=== PATIENT | female | born 1975 | race Hispanic/Latino ===

== ENCOUNTER 2023-10-29 17:52 | Emergency (ER) | payer BC ==
[~2023-10-29] VITALS: Ht 160 cm; Wt 76.2 kg
[2023-10-29 18:58] LABS: RAPID GROUP A STREP negative (NEGATIVE)
[2023-10-29 19:01] LABS: SARS-CoV-2, RNA, NAAT POSITIVE SARS CoV-2 (NEGATIVE)
[2023-10-29 19:09] LABS: INFLUENZA TYPE A Negative For Type A (NEGATIVE); INFLUENZA TYPE B Negative For Type B (NEGATIVE)
[2023-10-29] MEDS ORDERED: ACETAMINOPHEN 500 MG TABLET PO ONE (19:30)
[2023-10-29] MEDS ORDERED: ALBUTEROL 0.083% 2.5 MG/3 ML INH IH ONE (20:30)
[2023-10-29] MEDS ORDERED: KETOROLAC 60 MG VIAL (30MG/ML) IM ONE (20:30)
[2023-10-29 20:49] VITALS: BP 138/68; PULSE 88; RESP 18; O2SAT 98
== END 2023-10-29 20:51 | disposition home or self-care (01) ==
LOC: EDH 17:52
DX: R00.0 Tachycardia, unspecified (principal); E11.9 Type 2 diabetes mellitus without complications; Z20.822 Contact with and (suspected) exposure to COVID-19
CPT/HCPCS: 71045; 87635; 87804; 87880; 93005

== ENCOUNTER 2024-06-19 15:19 | Emergency (ER) | payer BC ==
[~2024-06-19] VITALS: Ht 160 cm; Wt 73.9 kg
[2024-06-19 16:28] LABS: BASOPHILS # (AUTO) 0.05 K/uL (0.00-0.20); BASOPHILS % (AUTO) 0.5 % (0.0-5.0); EOSINOPHILS # (AUTO) 0.08 K/uL (0.00-0.70); EOSINOPHILS % (AUTO) 0.8 % (0.0-8.0); HEMATOCRIT 38.1 % (36-48); IMMATURE GRANULOCYTE ABSOLUTE 0.04 K/uL (0-1); LYMPHOCYTES # (AUTO) 2.6 K/uL (1.0-4.8); MEAN CORPUSCULAR HEMOGLOBIN 29.2 pg (27.0-33.0); MEAN CORPUSCULAR HGB CONC 34.6 g/dL (32.0-36.0); MEAN CORPUSCULAR VOLUME 84.3 fL (79-99); MONOCYTES # (AUTO) 0.5 K/uL (0.1-1.0); MONOCYTES % (AUTO) 4.7 % (3.0-13.0); NEUTROPHILS # (AUTO) 7.2 K/uL (1.8-7.7); NEUTROPHILS % (AUTO) 68.6 % (40.0-77.0); PLATELET COUNT (AUTO) 315 K/uL (130-400); RED BLOOD CELL COUNT(AUTO) 4.52 MIL/uL (4.00-5.50); RED CELL DISTRIBUTION WIDTH 11.8 % (11.0-15.5); WHITE BLOOD COUNT (AUTO) 10.5 K/uL (4.8-10.8)
[2024-06-19 16:38] LABS: CREATININE 0.9 mg/dL (0.5-1.0); POTASSIUM 3.6 mmol/L (3.5-5.1)
[2024-06-19 16:43] LABS: ALBUMIN 3.7 g/dL (3.5-5.0); BILIRUBIN,TOTAL 0.3 mg/dL (0.2-1.0); TOTAL PROTEIN, SERUM 7.6 g/dL (6.0-8.3)
[2024-06-19] MEDS: LIDOCAINE HCL 2% VISCOUS 15 ML UDCUP PO ONE (16:56)
[2024-06-19] MEDS: MAG/ALUM/SIMETH 30 ML UDCUP PO ONE (16:56)
[2024-06-19] MEDS: ONDANSETRON 4MG INJ IVP ONE (16:56)
[2024-06-19] MEDS: 0.9%NACL 1000ML 1,000 ML IV ONE (16:56)
[2024-06-19] MEDS: FAMOTIDINE 20MG VIAL IV ONE (16:56)
[2024-06-19 17:26] LABS: ADD UA MICROSCOPIC YES; APPEARANCE,URINE CLEAR (CLEAR); BILIRUBIN,URINE NEGATIVE (NEGATIVE); COLOR,URINE YELLOW (YELLOW); GLUCOSE, URINE (UA) NEGATIVE (NEGATIVE); KETONES,URINE NEGATIVE (NEGATIVE); LEUKOCYTE ESTERASE ,URINE NEGATIVE Leu/uL (NEGATIVE); NITRATE,URINE NEGATIVE (NEGATIVE); OCCULT BLOOD,URINE NEGATIVE (NEGATIVE); PH,URINE 7.5 (5.0-8.0); PROTEIN,URINE 70 mg/dL (NEGATIVE); UROBILINOGEN,URINE 0.2 mg/dL (0.2-1.0)
[2024-06-19 17:29] LABS: BACTERIA,URINE RARE /HPF (None Seen); MUCUS,URINE RARE LPF (None Seen); RBC,URINE 0-1 /HPF (0-1); SQUAMOUS EPITHELIAL CELL,UR FEW /HPF (0-2); YEAST,URINE BUDDING FEW /HPF (None Seen)
[2024-06-19] MEDS ORDERED: FAMO-136 PO (17:50)
[2024-06-19] MEDS ORDERED: ONDA-243 PO (17:50)
[2024-06-19 17:53] VITALS: BP 152/86; PULSE 75; RESP 16; O2SAT 98
== END 2024-06-19 18:00 | disposition home or self-care (01) ==
LOC: EDH 15:19
DX: R10.13 Epigastric pain (principal); R11.2 Nausea with vomiting, unspecified; E11.9 Type 2 diabetes mellitus without complications; I10 Essential (primary) hypertension
CPT/HCPCS: 99284; 96374; 96361; 96375; 80053; 84703; 83690; 85025; 81001; 36415; J3490; J7030; J2405

== ENCOUNTER 2024-10-22 16:13 | Inpatient (IN) | payer BC ==
[~2024-10-22] VITALS: Ht 162.6 cm; Wt 74.3 kg
[~2024-10-22 16:13] MED LIST: FAMO-136 PO; ONDA-243 PO
--- NOTE | 2024-10-22 16:27 | ERN ---
ED Note History of Present Illness Stated Complaint: FEVER Chief Complaint: Fever Time Seen by MD: 16:24 Dictation: PATIENT IS A 48-YEAR-OLD DIABETIC FEMALE COMING IN TODAY WITH FEVER CHILLS NAUSEA VOMITING ONSET TODAY. SHE STATES HER LAST BLOOD SUGAR WAS 260 THIS MORNING. STATES HE HAS NOT BEEN ABLE TO KEEP ANY FOOD DOWN. DENIES DIARRHEA OR COUGH. NO CHEST PAIN NO BACK PAIN NO SOB. Allergies: Coded Allergies: No Known Drug Allergies (Unverified Allergy, Unknown, 10/29/23) Home Meds Active Scripts Famotidine (Pepcid) 20 Mg Tablet, 20 MG PO BID for 7 Days, #14 TAB Prov:CAREY AGUAYO 06/19/24 Ondansetron (Ondansetron Odt) 4 Mg Tab.rapdis, 4 MG PO BID for 7 Days, #14 TAB Prov:CAREY AGUAYO 06/19/24 Past Medical History Past Medical History: Arthritis, Diabetes-Type II, Hypertension Surgical History: Other Surgical History Other: LEFT EYE SX 8 DAYS AGO History: Not Applicable RN Note Reviewed/Agreed w/PFSH: Yes Review of System Dictation CONSTITUTIONAL: NEGATIVE EXCEPT FOR HPI FEVER CHILLS HEAD/FACE: NEGATIVE EXCEPT FOR HPI EENT: NEGATIVE EXCEPT FOR HPI RESPIRATORY: NEGATIVE EXCEPT FOR HPI GASTROINTESTINAL/ABDOMINAL: NEGATIVE EXCEPT FOR HPI NAUSEA VOMITING GENITOURINARY: NEGATIVE EXCEPT FOR HPI MUSCULOSKELETAL: NEGATIVE EXCEPT FOR HPI INTEGUMENTARY: NEGATIVE EXCEPT FOR HPI NEUROLOGICAL/PSYCH: NEGATIVE EXCEPT FOR HPI HEMATOLOGIC/LYMPHATIC: NEGATIVE EXCEPT FOR HPI ALL SYSTEMS NEGATIVE, EXCEPT NOTED ABOVE. 13 POINT REVIEW OF SYSTEMS ASSESSED AND ALL NEGATIVE EXCEPT FOR ABOVE. Initial Vital Sign VS Vital Signs Date Time Temp Pulse Resp B/P (MAP) Pulse Ox O2 Delivery O2 Flow Rate FiO2 10/22/24 16:16 102.2 137 18 129/79 96 Room Air 0 10/22/24 16:21 21 Physical Exam Dictation VITAL SIGNS REVIEWED GENERAL APPEARANCE: ALERT, ORIENTED X 3, MILD ACUTE DISTRESS, WELL DEVELOPED, NOURISHED. HEAD AND FACE: NON-TRAUMATIC. EYES: PERRL, PINK CONJUNCTIVAS, EYELID NO TRAUMA, ANTERIOR CHAMBER WITH ARCUS SENILIS. EARS: PINNAS INTACT AND NO SIGNS OF TRAUMA OR ERYTHEMA EAR CANALS CLEAR AND NO DISCHARGE TM NO ERYTHEMA NOSE: CLEAR DISCHARGE, NO BLEEDING. OROPHARYNX: MOUTH NORMAL, TONGUE PINK, PHARYNX CLEAR,NO ERYTHEMA, TONSILS NO EXUDATES, NO ABSCESSES NOTED, MUCOUS MEMB DIMITRY MOIST NECK: SUPPLE, NON-TENDER, NO THYROMEGALY, NO MASSES, NO JVD, NO BRUITS BREAST:DEFERRED CHEST:NO TENDERNESS, NO CREPITUS, NO PARADOXICAL MOVEMENT, NO RETRACTIONS LUNGS:CLEAR, WELL-VENTILATED, SYMMETRIC, NO RALES, NO WHEEZING, NO RHONCHI, NO S TRIDOR, GOOD BREATH SOUNDS BILATERALLY HEART: REGULAR RATE, REGULAR RHYTHM, NO MURMUR, NO GALLOPS VASCULAR: NO PERIPHERAL EDEMA, ABDOMEN: SOFT, POSITIVE BOWEL SOUNDS, NONDISTENDED, NO GUARDING, NONTENDER, NO REBOUND, NO MASSES NO HEPATOMEGALY, NO SPLENOMEGALY, NO MEDINA'S SIGN, NO HERNIAS. NO FOCAL TENDERNESS RECTAL: DEFERRED GENITAL: DEFERRED NEUROLOGICAL: NORMAL SPEECH, MOTOR FUNCTION INTACT, SENSORY FUNCTION INTACT MUSCULOSKELETAL: NECK NONTENDER, FULL RANGE OF MOTION, BACK NONTENDER, FULL RANGE OF MOTION, EXTREMITIES: NONTENDER, FULL RANGE OF MOTION SKIN: COLOR PINK, DRY, NO TURGOR, NO RASH, NO LACERATIONS, NO ABRASIONS, NO CONTUSIONS. LYMPHATIC: DEFERRED Results (Laboratory/Radiology) Laboratory/Radiology Laboratory Tests Test 10/22/24 16:38 10/22/24 18:00 White Blood Count 18.4 K/uL (4.8-10.8) H Red Blood Count 4.52 MIL/uL (4.00-5.50) Hemoglobin 13.1 g/dL (12.0-16.0) Hematocrit 38.2 % (36-48) Mean Corpuscular Volume 84.5 fL (79-99) Mean Corpuscular Hemoglobin 29.0 pg (27.0-33.0) Mean Corpuscular Hemoglobin Concent 34.3 g/dL (32.0-36.0) Red Cell Distribution Width 12.6 % (11.0-15.5) Platelet Count 196 K/uL (130-400) Mean Platelet Volume 10.1 fL (7.5-10.5) Immature Granulocyte % (Auto) 0.5 % (0-1) Neutrophils (%) (Auto) 89.4 % (40.0-77.0) H Lymphocytes (%) (Auto) 5.0 % (21.0-51.0) L Monocytes (%) (Auto) 4.6 % (3.0-13.0) Eosinophils (%) (Auto) 0.1 % (0.0-8.0) Basophils (%) (Auto) 0.4 % (0.0-5.0) Neutrophils # (Auto) 16.4 K/uL (1.8-7.7) H Lymphocytes # (Auto) 0.9 K/uL (1.0-4.8) L Monocytes # (Auto) 0.8 K/uL (0.1-1.0) Eosinophils # (Auto) 0.01 K/uL (0.00-0.70) Basophils # (Auto) 0.08 K/uL (0.00-0.20) Absolute Immature Granulocyte (auto 0.09 K/uL (0-1) Nucleated Red Blood Cells 0.0 % (0.0-0.19) White Cell Morphology Comment See comments Sodium Level 140 mmol/L (136-145) Potassium Level 4.0 mmol/L (3.5-5.1) Chloride Level 104 mmol/L (101-111) Carbon Dioxide Level 29 mmol/L (21-32) Blood Urea Nitrogen 14 mg/dL (7-18) Creatinine 0.9 mg/dL (0.5-1.0) Glomerular Filtration Rate Calc 79 mL/min (>90) Random Glucose 153 mg/dL (70-105) H Whole Blood Ketones Quantitative 0.2 mmol/L (0.0-0.6) Lactic Acid Level 2.2 mmol/L (0.8-2.5) Total Calcium 9.0 mg/dL (8.5-10.1) Urine Color LIGHT-YELLOW (YELLOW) Urine Appearance CLEAR (CLEAR) Urine pH 6.5 (5.0-8.0) Urine Specific [place] 1.022 (1.001-1.031) Urine Protein 50 mg/dL (NEGATIVE) H Urine Glucose (UA) 30 mg/dL (NEGATIVE) H Urine Ketones NEGATIVE mg/dL (NEGATIVE) Urine Occult Blood NEGATIVE (NEGATIVE) Urine Nitrate NEGATIVE (NEGATIVE) Urine Bilirubin NEGATIVE mg/dL (NEGATIVE) Urine Urobilinogen 0.2 mg/dL (0.2-1.0) Urine Leukocyte Esterase NEGATIVE Sale[place]/uL Urine RBC None /HPF (0-1) Urine WBC 0-1 /HPF (0-1) Urine Squamous Epithelial Cells RARE /HPF (0-2) Urine Bacteria None /HPF (None Seen) Influenza Type A Antigen Negative For Type A Influenza Type B Antigen Negative For Type B SARS-CoV-2 Antigen (Rapid) PRESUMPTIVE NEGATIVE HEST 1VW HISTORY: Cough COMPARISON: None FINDINGS: A frontal projection of the chest was obtained. No acute pulmonary infiltrates is seen. The heart is normal in size. Prominent interstitial markings are seen. No evidence of aortic calcification is seen. IMPRESSION: 1. No acute pulmonary infiltrate is seen. Labs Reviewed?: Yes ED Course ED Course Orders Procedure Category Date Status Time Covid19 (Sars Antigen LAB 10/22/24 Complete Rapid) 16:24 Influenza Type A & B, LAB 10/22/24 Complete Rapid 16:24 Ketone Blood LAB 10/22/24 Complete Quantitative 16:24 Acetaminophen 500mg PHA 10/22/24 Complete Tab (Tylenol 500mg T 16:30 Cbc With Differential LAB 10/22/24 Complete 16:24 Blood Cult SAMMI 10/22/24 In Process 16:24 Urinalysis Profile LAB 10/22/24 Complete 16:24 0.9%Nacl 1000ml (Ns PHA 10/22/24 In Process 1000ml) 16:30 Lactic Acid LAB 10/22/24 Complete 16:24 Ceftriaxone 2gm Vial PHA 10/22/24 Complete (Rocephin 2gm Inj) 16:30 Basic Metabolic Panel LAB 10/22/24 Complete 16:24 Chest 1vw RAD 10/22/24 Logged 18:49 Current Medications Medications (Trade) Dose Ordered Sig/Lc Route PRN Reason Start Time Stop Time Status Last Admin Dose Admin Acetaminophen (TYLenol 500MG TAB) 1,000 mg ONCE ONCE PO 10/22/24 16:30 10/22/24 16:31 DC 10/22/24 17:58 Ceftriaxone Sodium (Rocephin 2gm Inj) 2 gm ONCE ONCE IVPB 10/22/24 16:30 10/22/24 16:31 DC 10/22/24 17:57 Sodium Chloride 2,178 ml @ 726 mls/hr ONCE ONCE IV 10/22/24 16:30 10/22/24 19:29 10/22/24 17:57 Vital Signs Date Time Temp Pulse Resp B/P (MAP) Pulse Ox O2 Delivery O2 Flow Rate FiO2 10/22/24 18:16 100.8 110 20 132/71 96 Room Air* 0 21 10/22/24 16:21 102.2 137 18 129/79 96 Room Air* 0 21 10/22/24 16:16 102.2 137 18 129/79 96 Room Air 0 1855 Patient will be admitted to the hospital for fever of unknown origin leukocytosis and elevated lactic acid. Unable to locate source of infection, patient will need possible infectious disease follow up. She agrees to be admitted. She remains hemodynamically stable however is tachycardic with heart rate 118-125. Spoke with Eric YOON hospitalist reviewed labs to include septic workup a pending chest x-ray. He agreed to admit patient. Medical Decision Making MDM MDM: Differential diagnosis: Sepsis/DKA/electrolyte imbalance/dehydration/p neumonia/bronchitis/urinary tract infection Rationale: Tests considered and ordered secondary to shared decision making include: labs, and radiology Previous outside records reviewed: Old ER visits. Reviewed Risk of complication and/or morbidity or mortality of patient management: Mild Medications-Per medication reconciliation Need for hospitalization: Patient does meet criteria for hospitalization. Patient will need infectious disease consultation and follow up on sepsis Need for emergency major/minor surgery: No There are no social concerns with this patient. Prescription drug management Prescriptions will include symptomatic care Patient's prior external medical records from other ER visits were reviewed by me as indicated. Prior testing and results from previous visits were reviewed. Prior tests were taken into account with medical decision making and resource utilization, independent historian/historians were used to obtain complete medical history. I independently interpreted the test that were performed, results were reviewed by me and considered findings on radiology if ordered. Medical management and examination interpretation discussions were had by me with other qualified healthcare professionals as indicated for the patient's care. DX & DISP Disposition: Inpatient Decision to Admit Time: 18:57 Departure Impression: Primary Impression: Intractable nausea and vomiting Additional Impressions: Uncontrolled diabetes mellitus, Fever, unknown o rigin, Elevated lactic acid level Condition: Stable Referrals: ASTON TANNER MD (PCP) Time of Disposition: 18:57 I have reviewed the case, and I agree with, Diagnosis and Plan HARI HOLLAND NP Oct 22, 2024 16:27
[2024-10-22 16:47] LABS: BASOPHILS # (AUTO) 0.08 K/uL (0.00-0.20); BASOPHILS % (AUTO) 0.4 % (0.0-5.0); EOSINOPHILS # (AUTO) 0.01 K/uL (0.00-0.70); EOSINOPHILS % (AUTO) 0.1 % (0.0-8.0); HEMATOCRIT 38.2 % (36-48); IMMATURE GRANULOCYTE ABSOLUTE 0.09 K/uL (0-1); LYMPHOCYTES # (AUTO) 0.9 K/uL (1.0-4.8); MEAN CORPUSCULAR HGB CONC 34.3 g/dL (32.0-36.0); MEAN CORPUSCULAR VOLUME 84.5 fL (79-99); MONOCYTES # (AUTO) 0.8 K/uL (0.1-1.0); MONOCYTES % (AUTO) 4.6 % (3.0-13.0); NEUTROPHILS # (AUTO) 16.4 K/uL (1.8-7.7); NEUTROPHILS % (AUTO) 89.4 % (40.0-77.0); PLATELET COUNT (AUTO) 196 K/uL (130-400); RED BLOOD CELL COUNT(AUTO) 4.52 MIL/uL (4.00-5.50); RED CELL DISTRIBUTION WIDTH 12.6 % (11.0-15.5); WHITE BLOOD COUNT (AUTO) 18.4 K/uL (4.8-10.8)
[2024-10-22 17:06] LABS: CREATININE 0.9 mg/dL (0.5-1.0)
[2024-10-22] MEDS: 0.9%NACL 1000ML 2,178 ML IV ONE (17:57)
[2024-10-22] MEDS: CEFTRIAXONE 2GM VIAL IVPB ONE (17:57)
[2024-10-22] MEDS: acetaMINOPHEN 500 MG TABLET PO ONE (17:58)
[2024-10-22 18:17] LABS: APPEARANCE,URINE CLEAR (CLEAR); BILIRUBIN,URINE NEGATIVE (NEGATIVE); COLOR,URINE LIGHT-YELLOW (YELLOW); GLUCOSE, URINE (UA) 30 mg/dL (NEGATIVE); KETONES,URINE NEGATIVE (NEGATIVE); LEUKOCYTE ESTERASE ,URINE NEGATIVE Leu/uL (NEGATIVE); NITRATE,URINE NEGATIVE (NEGATIVE); OCCULT BLOOD,URINE NEGATIVE (NEGATIVE); PH,URINE 6.5 (5.0-8.0); PROTEIN,URINE 50 mg/dL (NEGATIVE); UROBILINOGEN,URINE 0.2 mg/dL (0.2-1.0)
[2024-10-22 18:20] LABS: ADD UA MICROSCOPIC YES
[2024-10-22 18:25] LABS: COVID19 (SARS ANTIGEN RAPID) PRESUMPTIVE NEGATIVE (NEGATIVE)
[2024-10-22 18:26] LABS: MUCUS,URINE RARE LPF (None Seen); SQUAMOUS EPITHELIAL CELL,UR RARE /HPF (0-2); WBC,URINE 0-1 /HPF (0-1)
[2024-10-22 18:27] LABS: INFLUENZA TYPE A Negative For Type A (NEGATIVE); INFLUENZA TYPE B Negative For Type B (NEGATIVE)
--- NOTE | 2024-10-22 19:17 | HP ---
History of Present Illness Reason for Visit: fever History of Present Illness is a 48-year-old female that was seen and examined today on 10/22/2024. Today in the emergency department WBCs 18.4, left shift neutrophils 89.4%, BNP unremarkable, glucose 153 mg/dL, urinalysis unremarkable, influenza screen was negative, COVID screen was negative. No diagnostic radiographic imaging has been performed at time of admission. Chest x-ray has now been ordered. Additionally patient arrived with a temperature of 102.2, heart rate 137, combined with WBCs 18.4 met clinical sirs criteria. Emergency room physician recommended that patient be admitted with a diagnosis of SIRS. Past Medical History ADDITIONAL PAST MEDICAL HISTORY: [Diabetes mellitius type2, hypertension, hyperlipidemia] SOCIAL HISTORY: [Negative for smoking, alcohol use, drug use. Patient lives with the [employer] [facility]. Patient is typically independent of all her ADLs. Patient is employed as a provider. Patient has good access to health care through her insurance. Patient denies difficulty paying her bills.] SURGICAL HISTORY: [Left eye injection, section x2] Review of Systems General: Fever, Chills; No Night Sweats, No Fatigue, No Malaise, No Appetite, No Other HEENT: No Head Aches, No Visual Changes, No Eye Pain, No Ear Pain, No Dysphasia, No Sinus Congestion, No Post Nasal Drip, No Sore Throat, No Other Pulmonary: No Dyspnea, No Cough, No Pleuritic Chest Pain, No Other Cardiovascular: No: Chest Pain, Palpitations, Orthopnea, Paroxysmal Noc. Dyspnea, Edema, Lt Headedness, Other Gastrointestinal: Nausea, Vomiting; No: Abdominal Pain, Diarrhea, Constipation, Melena, Hematochezia, Other Genitourinary: No Dysuria, No Frequency, No Incontinence, No Hematuria, No Retention, No Other Musculoskeletal: No: other, neck pain, shoulder pain, arm pain, back pain, hand pain, leg pain, foot pain Skin: No Urticaria, No Rash, No Other Neurological: No: Weakness, Numbness, Incoordination, Change in speech, Confusi on, Seizures, Other Allergies: Coded Allergies: No Known Drug Allergies (Unverified Allergy, Unknown, 10/29/23) Scheduled Famotidine (Pepcid), 20 MG PO BID Metformin HCl (Metformin HCl), 2 TAB PO BID, (Reported) Ondansetron (Ondansetron Odt), 4 MG PO BID Semaglutide (Ozempic), 2 MG SQ QWEEK, (Reported) Exam Vital Signs Vital Signs Date Time Temp Pulse Resp B/P (MAP) Pulse Ox O2 Delivery O2 Flow Rate FiO2 10/22/24 19:02 99.7 110 20 131/77 97 Room Air* 0 21 General Appearance: Alert, Oriented X3, Cooperative, mild distress HEENT: Atraumatic, PERRLA, EOMI, Mucous membr. moist/pink Respiratory: Clear to auscultation, Normal air movement, NL respiratory effort Cardiovascular: Normal S1, Normal S2, Other (Tachycardia) Abdominal: Normal bowel sounds, Soft, No tenderness, No hepatospenomegaly Extremities: No clubbing, No cyanosis, No edema Skin: No significant lesion Neuro: Normal gait, Normal speech, Strength at 5/5 X4 ext, Sensation intact, Cranial nerves 3-12 NL Psych/Mental Status: Mental status NL, Mood NL, Thoughts/Content NL Assessment/Plan ASSESSMENT: [ Sirs, POA Diabetes mellitius type2 Hypertension Hyperlipidemia Nausea, vomiting, POA] PLAN: [ Admit patient to medical floor as inpatient status. Fluid resuscitation with 0.9% NS 30 mL/kg times 1 dose Empiric antibiotic therapy with Zosyn Check procalcitonin, follow up with the results Check lactic acid, follow up with the results Check blood culture, follow up with the results Check chest x-ray, follow up with the results Check GI stool PCR, follow up with the results Check group a strep rapid antigen, follow up with the results GI rest Keep patient NPO Consider advancing diet to clear liquids on 10/23/2024 for lunch if patient is no longer nauseated. Check hemoglobin A1c in a.m. Glucometer checks a.c. and HS 1800 ADA diet Humulin R sliding scale 1. Consider resuming home medications once they are reconciled For now, Hydralazine 10 mg IV every 4 hours for systolic blood pressure greater than 160 mmHg GI prophylaxis, famotidine 20 mg IV once daily. DVT prophylaxis, Lovenox 40 mg subcutaneously once daily. ADVANCED CARE PLANNING 1. Which of the following were discussed? Hospice Care - Yes Therapeutic options - Yes Advance Directives - Yes- patient does not have any advance directives in p lace at this time, however her [employer] can make decisions for her if she becomes unable. Other discussions - patient wishes to remain a full code at this time 2. Discussed with who? Patient 3. Voluntary nature of this service was explained to the patient? Yes 4. Amount of time spent - __ 16 minutes 5. Reviewed by Physician? (if this service was performed by NPP) Yes This document was generated in part using voice recognition software, occasional wrong word or sound alike substitutions may have occurred due to the inherent limitations of voice recognition software. Read the chart carefully and recogn ize using context, where the substitutions have occurred. Although every effort was made to edit the content, [employer] infrastructure consultant and typing errors may occur ATTESTATION BY PHYSICIAN I have seen and examined the patient. I reviewed the documentation, medical d ecision making, and treatment plan as noted by the mid-level provider above. I agree with the findings and plan of care. DARIANA [facility] Oct 22, 2024 19:17
[2024-10-22] MEDS ORDERED: morPHINE 4 MG SYG IVP PRN (19:30)
[2024-10-22] MEDS ORDERED: hydrALAZine 20MG/ML VIAL IV PRN (19:30)
[2024-10-22] MEDS: ZOSYN 3.375GM +NS 50ML IV SCH (19:34)
[2024-10-22] MEDS: LACTATED RINGERS 1000ML 1,000 ML IV SCH (19:35)
[2024-10-22] MEDS ORDERED: METF-444 PO (19:40)
[2024-10-22] MEDS ORDERED: SEMA2PEN SQ (19:41)
--- NOTE | 2024-10-22 19:41 | NUR ---
PATIENT DID NOT BRING HOME MEDICATIONS
--- NOTE | 2024-10-22 20:00 | HMCIMG ---
Exam Type: CHEST 1VW Clinical Information: SOB/cough Comparison: None Findings: The lungs are clear of infiltrates. The heart is enlarged. Bony and soft tissue structures of the chest wall are unremarkable. IMPRESSION: Cardiomegaly. Clear lungs.
[2024-10-22] MEDS: INSULIN humuLIN R 100 UNIT/ML 3ML SQ SCH (21:04)
[2024-10-22 22:04] VITALS: BP 121/66; PULSE 98; RESP 18; TEMP 97.7
[2024-10-22 23:00] VITALS: O2SAT 96
[2024-10-23] VITALS (7 sets, daily range): BP systolic 107–138; BP diastolic 58–78; PULSE 85–105; RESP 19–21; TEMP 97.7–100.2; O2SAT 98–99
[2024-10-23] MEDS: acetaMINOPHEN 650 MG SUPPOSITORY RC PRN (01:32)
[2024-10-23 05:56] LABS: BASOPHILS # (AUTO) 0.07 K/uL (0.00-0.20); BASOPHILS % (AUTO) 0.4 % (0.0-5.0); HEMATOCRIT 32.5 % (36-48); LYMPHOCYTES % (AUTO) 10.3 % (21.0-51.0); MEAN CORPUSCULAR HEMOGLOBIN 28.5 pg (27.0-33.0); MEAN CORPUSCULAR HGB CONC 34.2 g/dL (32.0-36.0); MEAN CORPUSCULAR VOLUME 83.5 fL (79-99); MONOCYTES # (AUTO) 1.1 K/uL (0.1-1.0); MONOCYTES % (AUTO) 5.4 % (3.0-13.0); NEUTROPHILS # (AUTO) 16.2 K/uL (1.8-7.7); NEUTROPHILS % (AUTO) 83.4 % (40.0-77.0); PLATELET COUNT (AUTO) 177 K/uL (130-400); RED BLOOD CELL COUNT(AUTO) 3.89 MIL/uL (4.00-5.50); RED CELL DISTRIBUTION WIDTH 12.8 % (11.0-15.5); WHITE BLOOD COUNT (AUTO) 19.4 K/uL (4.8-10.8)
[2024-10-23] MEDS: ondanSETRON 4MG INJ IV PRN (05:59)
[2024-10-23 06:23] LABS: HEMOGLOBIN A1C 6.4 % (4.0-6.0)
[2024-10-23 06:26] LABS: CREATININE 0.8 mg/dL (0.5-1.0); MAGNESIUM 1.6 mg/dL (1.80-2.40); PHOSPHORUS 3.2 mg/dL (2.5-4.9); POTASSIUM 3.6 mmol/L (3.5-5.1)
[2024-10-23] MEDS ORDERED: PoTASSium chloRIDE 20MEQ/100ML 100 ML IV PRN (11:30)
[2024-10-23] MEDS ORDERED: PoTASSium chl 10% ELIXIR 20MEQ 20 MEQ/15 ML UDCUP PO PRN (11:30)
[2024-10-23] MEDS ORDERED: doCUSate SODIUM 100 MG CAP PO ONE (11:30)
[2024-10-23] MEDS: FAMOTIDINE 20MG VIAL IV SCH (11:47)
[2024-10-23] MEDS: ENOXAPARIN SODIUM 40 MG/0.4 ML SYRINGE SQ SCH (11:47)
--- NOTE | 2024-10-23 12:52 | PN ---
[facility] PROGRESS NOTE Date of Service: Oct 23, 2024 Time of Service: 11:30 SUBJECTIVE: The patient is a 48-year-old female with a past medical history of type 2 diabetes mellitus, hypertension, hyperlipidemia presented to ED on 10/22 with the chief complaints of 1 day of fever with chills, nausea, and vomiting. She stated her blood sugar is 260 the day before presentation and was not able to keep any food down. She reports having been around his grandson who was sick and had similar symptoms. On presentation, she was febrile with a temperature of 102.2, pulse rate 137, blood pressure of 129/79. Labs showed a WBC of 18.4, neutrophils percentage 89.4, lymphopenia 5, electrolytes and liver enzymes were within normal limits. Whole blood sugar was 212, hemoglobin A1c 6.4, lactic acid 2.2, magnesium 1.6. Urine analysis results were nonsignificant, the patient tested positive for group a Streptococcus. She met the SIRS criteria and was admitted for the management of SIRS. 10/23- the patient was examined at bedside. She is lying comfortably however says she is feeling tired, having chills and occipital headaches. Meningeal s igns were negative. She had a fever of 100.2 today a.m. and tachycardia has been improving now is in early 100s. Labs: WBC went up to 19.4 From 18.4, lactic acid 2.5, hemoglobin A1C 6.4, total calcium 8.4, magnesium 1.6. The patient meets the criteria for sepsis. We will continue Zosyn, monitor improvement in clinical symptoms, and repeat labs in a.m. REVIEW OF SYSTEMS CONSTITUTIONAL: c/o fevers, chills, headaches. Denies night sweats. No unintentional weight loss reported. NEUROLOGICAL: Denies amaurosis fugax, motor weakness, sensory deficit, verti go/spinning sensation, gait abnormalities, or tremors. ENT: No hearing loss, otalgia, otorrhea, rhinitis, rhinorrhea, hoarseness, or sore throat. CARDIOVASCULAR: Denies any exertional angina, dyspnea on exertion, orthopnea, paroxysmal nocturnal dyspnea, palpitations, life-threatening arrhythmias, claudication. PULMONARY: Denies any shortness of breath, cough, phlegm/sputum, hemoptysis, pleuritic chest pain. SLEEP: Denies morning headaches, daytime somnolence or napping. Denies difficulty falling asleep, staying asleep, waking from sleep. Denies knowledge of snoring. GASTROINTESTINAL: Denies any type of dysphagia to either liquids or solids. Denies nausea, vomiting, pyrosis, early satiety, abdominal pain, diarrhea, constipation, or changes in stool consistency or caliber. Denies coffee-ground emesis, hematemesis, hematochezia, or melanotic stools. GENITOURINARY: Denies frequency, urgency, nocturia, hematuria or incontinence (Storage/Irritative symptoms.) Low urinary stream, straining to void, urinary intermittency or hesitancy, splitting of the voiding stream, terminal dribbling. ENDOCRINOLOGIC: Denies polyuria, polydipsia, polyphagia or heat/cold intolerances. HEMATOLOGIC: Denies thrombophilia/previous clots, or coagulopathy/bleeding disorders. ONCOLOGIC: Denies personal history of malignancy. DERMATOLOGIC: Denies rashes or pruritus. PSYCHIATRIC: Denies any suicidal or homicidal ideation. Denies hallucinations. PHYSICAL EXAM GENERAL APPEARANCE: The patient is awake, alert, and oriented, in no acute cardiopulmonary distress. NEUROLOGICAL: Cranial nerves II-XII grossly intact. Motor is 5/5 in bilateral upper and lower extremities proximal to distal. No sensory deficits. HEENT: Face is symmetric. Pupils are equal and reactive. Extraocular movements are intact. NECK: Supple. No JVD. No thyromegaly. No submental, submandibular, pre- /postauricular, occipital or supraclavicular lymphadenopathy. CHEST: Normal chest expansion. No Telemetry. LUNGS: Absence of any rales, rhonchi or any wheezing. CARDIOVASCULAR: Regular. S1 and S2 normal. No appreciable rubs, murmurs or gallops. ABDOMEN: Soft, nontender, and nondistended. There is no rebound, voluntary guarding, or rigidity. : Deferred. No Woodard. EXTREMITIES: Non-edematous and not cyanotic. No clubbing. Good capillary refill. SKIN: No skin breakdown. Vital Signs (last 8hr) Date Time Temp Pulse Resp B/P (MAP) Pulse Ox O2 Delivery O2 Flow Rate FiO2 10/23/24 12:00 100.0 98 21 124/74 97 Room Air 10/23/24 08:00 100.2 92 19 138/78 99 Room Air LABS: Laboratory: Test 10/23/24 11:45 10/23/24 05:51 10/22/24 20:55 10/22/24 20:40 Range/Units Whole Blood Glucose 142 H 70-110 MG/DL White Blood Count 19.4 H 4.8-10.8 K/uL Red Blood Count 3.89 L 4.00-5.50 MIL/uL Hemoglobin 11.1 L 12.0-16.0 g/dL Hematocrit 32.5 L 36-48 % Mean Corpuscular Volume 83.5 79-99 fL Mean Corpuscular Hemoglobin 28.5 27.0-33.0 pg Mean Corpuscular Hemoglobin Concent 34.2 32.0-36.0 g/dL Red Cell Distribution Width 12.8 11.0-15.5 % Platelet Count 177 130-400 K/uL Mean Platelet Volume 10.0 7.5-10.5 fL Immature Granulocyte % (Auto) 0.5 0-1 % Neutrophils (%) (Auto) 83.4 H 40.0-77.0 % Lymphocytes (%) (Auto) 10.3 L 21.0-51.0 % Monocytes (%) (Auto) 5.4 3.0-13.0 % Eosinophils (%) (Auto) 0.0 0.0-8.0 % Basophils (%) (Auto) 0.4 0.0-5.0 % Neutrophils # (Auto) 16.2 H 1.8-7.7 K/uL Lymphocytes # (Auto) 2.0 1.0-4.8 K/uL Monocytes # (Auto) 1.1 H 0.1-1.0 K/uL Eosinophils # (Auto) 0.00 0.00-0.70 K/uL Basophils # (Auto) 0.07 0.00-0.20 K/uL Absolute Immature Granulocyte (auto 0.10 0-1 K/uL Nucleated Red Blood Cells 0.0 0.0-0.19 % Sodium Level 142 136-145 mmol/L Potassium Level 3.6 3.5-5.1 mmol/L Chloride Level 108 101-111 mmol/L Carbon Dioxide Level 27 21-32 mmol/L Blood Urea Nitrogen 10 7-18 mg/dL Creatinine 0.8 0.5-1.0 mg/dL Glomerular Filtration Rate Calc 91 >90 mL/min Random Glucose 128 H 70-105 mg/dL Hemoglobin A1c 6.4 H 4.0-6.0 % Estimated Average Glucose (eAG) 137 H 70-126 mg/dL Total Calcium 8.4 L 8.5-10.1 mg/dL Phosphorus Level 3.2 2.5-4.9 mg/dL Magnesium Level 1.60 L 1.80-2.40 mg/dL Group A Streptococcus Rapid positive *A NEGATIVE Lactic Acid Level 2.5 0.8-2.5 mmol/L Test 10/22/24 18:00 10/22/24 16:38 Range/Units Urine Color LIGHT-YELLOW YELLOW Urine Appearance CLEAR CLEAR Urine pH 6.5 5.0-8.0 Urine Specific [place] 1.022 1.001-1.031 Urine Protein 50 H NEGATIVE mg/dL Urine Glucose (UA) 30 H NEGATIVE mg/dL Urine Ketones NEGATIVE NEGATIVE mg/dL Urine Occult Blood NEGATIVE NEGATIVE Urine Nitrate NEGATIVE NEGATIVE Urine Bilirubin NEGATIVE NEGATIVE mg/dL Urine Urobilinogen 0.2 0.2-1.0 mg/dL Urine Leukocyte Esterase NEGATIVE NEGATIVE Saleem/uL Urine RBC None 0-1 /HPF Urine WBC 0-1 0-1 /HPF Urine Squamous Epithelial Cells RARE 0-2 /HPF Urine Bacteria None None Seen /HPF Influenza Type A Antigen Negative For Type A NEGATIVE Influenza Type B Antigen Negative For Type B NEGATIVE SARS-CoV-2 Antigen (Rapid) PRESUMPTIVE NEGATIVE NEGATIVE White Cell Morphology Comment See comments Whole Blood Ketones Quantitative 0.2 0.0-0.6 mmol/L Procalcitonin < 0.05 L 0.05-0.5 ng/mL Current Medications Medications (Trade) Dose Ordered Sig/Lc Route PRN Reason Start Time Stop Time Status Last Admin Dose Admin Acetaminophen (TYLenol 650MG SUPPOSITORY) 650 mg Q6H PRN RC MILD to MODERATE PAIN (1-6) 10/22/24 19:30 11/21/24 19:29 10/23/24 01:32 650 MG Bisacodyl (DulcoLAX 5MG TAB) 10 mg BID PRN PO PRN 10/23/24 11:30 11/22/24 11:29 Enoxaparin Sodium (Lovenox) 40 mg DAILY SQ 10/23/24 09:00 11/22/24 08:59 10/23/24 11:47 40 MG Famotidine (Pepcid 20mg Vial) 20 mg DAILY IV 10/23/24 09:00 11/22/24 08:59 10/23/24 11:47 20 MG Hydralazine HCl (APRESOLine 20MG INJ) 10 mg Q6H PRN IV For:SBP above 160;DBP above 90 10/22/24 19:30 11/21/24 19:29 Insulin Human Regular (humuLIN R 100 UNIT/ML 3ML) INSULIN SLIDING SCAL... ACHS SQ 10/22/24 21:00 11/21/24 20:59 10/22/24 21:04 12 UNIT Lactated Ringer's 1,000 ml @ 100 mls/hr Q10H IV 10/22/24 19:30 11/21/24 19:29 10/22/24 19:35 100 MLS/HR Magnesium Sulfate 50 ml @ 0 mls/hr PROTOCOL PRN IV PRN 10/23/24 11:30 11/22/24 11:29 Morphine Sulfate (morPHINE 4MG SYG) 4 mg Q4H PRN IVP SEVERE PAIN (7-10) 10/22/24 19:30 10/29/24 19:29 Ondansetron HCl (zoFRAN 4MG INJ) 4 mg Q6H PRN IV NAUSEA/VOMITING 10/22/24 19:30 11/21/24 19:29 10/23/24 05:59 4 MG Piperacillin Sod/ Tazobactam Sod (Zosyn 3.375gm+NS 50ml) 3.375 gm Q8H IV 10/22/24 19:30 11/01/24 19:29 10/23/24 11:47 3.375 GM Potassium Chloride 100 ml @ 100 mls/hr AD PRN IV POTASSIUM PROTOCOL 10/23/24 11:30 11/22/24 11:29 Potassium Chloride (K-Dur/Klor-Con 20meq) 20 meq AD PRN PO POTASSIUM PROTOCOL 10/23/24 11:30 11/22/24 11:29 Potassium Chloride (KCl 10% Elixir 20meq/15ml) 20 meq AD PRN PO POTASSIUM PROTOCOL 10/23/24 11:30 11/22/24 11:29 DIAGNOSTICS / RADIOLOGY: [place] [id number] [address] IMAGING REPORT Signed PATIENT: ABDI RODRIGUEZ MR#: [id number] : 1975 SEX: F AGE: 48 LOCATION: [facility] ORDER 49 STATUS: ADM IN REPORT#: [id number] SERVICE 184 REASON: SOB/cough ORDERING PHYSICIAN: HARI HOLLAND NP PROCEDURE: CXR1VW - CHEST 1VW Exam Type: CHEST 1VW Clinical Information: SOB/cough Comparison: None Findings: The lungs are clear of infiltrates. The heart is enlarged. Bony and soft tissue structures of the chest wall are unremarkable. IMPRESSION: Cardiomegaly. Clear lungs. DICTATED BY: MARLON DIGGS MD DATE: 10/22/241952 ELECTRONICALLY SIGNED BY: MARLON DIGGS MD DATE: 10/22/241999 ASSESSMENT: Sepsis, POA Group A Streptococcal infection, POA Diabetes mellitus type 2 Hypertension Hyperlipidemia Nausea, vomiting, POA PLAN: Sepsis, POA Group A Streptococcal infection, POA * Continue Zosyn Q 8 IV * Continue LR at 100 cc/hour and re-evaluate tomorrow * Blood Cultures were collected, results are pending. Follow up when the results are available. Diabetes mellitus type 2, POA * Continue on insulin sliding scale Nausea, vomiting, POA * Continue Zofran 4 mg q.6 p.r.n. * Start on GI soft diet * Continue on Lovenox 40 mg. Discontinue once the patient is comfortable ambulating * Replace electrolytes per protocol We will monitor vitals, clinical symptoms overnight and repeat labs tomorrow. ATTESTATION BY PHYSICIAN I have seen and examined the patient. I reviewed the documentation, medical decision making, and treatment plan as noted by the resident provider above. I agree with the findings and plan of care. Brittney Graham MD, MANALI MD Oct 23, 2024 12:52
[2024-10-23] MEDS: BisaCODYL 5 MG TABLET.DR PO PRN (17:28)
[2024-10-23] MEDS: PoTASSium chloRIDE 20MEQ ER 20 MEQ ERTAB PO PRN (17:28)
[2024-10-23] MEDS: MAGNESIUM 2GM PREMIX 50ML 50 ML IV PRN (17:29)
[2024-10-23] MEDS: acetaMINOPHEN 325 MG TAB PO PRN (18:39)
[2024-10-23] MEDS ORDERED: GLUCAGON 1MG KIT 1 MG ML IM PRN (21:30)
[2024-10-23] MEDS ORDERED: DEXTROSE 50%-WATER 50 ML DISP.SYRIN IV PRN (21:30)
[2024-10-24] VITALS: BP 113/70; PULSE 79; RESP 16; TEMP 98.2
[2024-10-24 04:00] VITALS: BP 132/78; PULSE 83; RESP 16; TEMP 98.5
[2024-10-24 05:57] LABS: BASOPHILS # (AUTO) 0.07 K/uL (0.00-0.20); BASOPHILS % (AUTO) 0.6 % (0.0-5.0); EOSINOPHILS # (AUTO) 0.12 K/uL (0.00-0.70); HEMATOCRIT 29.5 % (36-48); IMMATURE GRANULOCYTE ABSOLUTE 0.06 K/uL (0-1); LYMPHOCYTES % (AUTO) 24.8 % (21.0-51.0); MEAN CORPUSCULAR HEMOGLOBIN 29.4 pg (27.0-33.0); MEAN CORPUSCULAR HGB CONC 34.9 g/dL (32.0-36.0); MEAN CORPUSCULAR VOLUME 84.3 fL (79-99); MONOCYTES # (AUTO) 0.9 K/uL (0.1-1.0); MONOCYTES % (AUTO) 7.6 % (3.0-13.0); NEUTROPHILS % (AUTO) 65.5 % (40.0-77.0); PLATELET COUNT (AUTO) 148 K/uL (130-400); RED CELL DISTRIBUTION WIDTH 12.7 % (11.0-15.5); WHITE BLOOD COUNT (AUTO) 12.1 K/uL (4.8-10.8)
[2024-10-24 06:11] LABS: CREATININE 0.9 mg/dL (0.5-1.0); MAGNESIUM 2.2 mg/dL (1.80-2.40); POTASSIUM 4.3 mmol/L (3.5-5.1)
[2024-10-24 08:11] VITALS: BP 128/71; PULSE 69; RESP 18; TEMP 98.1
[2024-10-24 08:50] VITALS: O2SAT 98
[2024-10-24 11:54] VITALS: BP 142/85; PULSE 77; RESP 18; TEMP 98.1
--- NOTE | 2024-10-24 13:06 | PN ---
[facility] PROGRESS NOTE Date of Service: Oct 24, 2024 Time of Service: 13:05 SUBJECTIVE: The patient is a 48-year-old female with a past medical history of type 2 diabetes mellitus, hypertension, hyperlipidemia presented to ED on 10/22 with the chief complaints of 1 day of fever with chills, nausea, and vomiting. She stated her blood sugar is 260 the day before presentation and was not able to keep any food down. She reports having been around his grandson who was sick and had similar symptoms. On presentation, she was febrile with a temperature of 102.2, pulse rate 137, blood pressure of 129/79. Labs showed a WBC of 18.4, neutrophils percentage 89.4, lymphopenia 5, electrolytes and liver enzymes were within normal limits. Whole blood sugar was 212, hemoglobin A1c 6.4, lactic acid 2.2, magnesium 1.6. Urine analysis results were nonsignificant, the patient tested positive for group a Streptococcus. She met the SIRS criteria and was admitted for the management of SIRS. 10/23- the patient was examined at bedside. She is lying comfortably however says she is feeling tired, having chills and occipital headaches. Meningeal s igns were negative. She had a fever of 100.2 today a.m. and tachycardia has been improving now is in early 100s. Labs: WBC went up to 19.4 From 18.4, lactic acid 2.5, hemoglobin A1C 6.4, total calcium 8.4, magnesium 1.6. The patient meets the criteria for sepsis. We will continue Zosyn, monitor improvement in clinical symptoms, and repeat labs in a.m. REVIEW OF SYSTEMS CONSTITUTIONAL: c/o fevers, chills, headaches. Denies night sweats. No unintentional weight loss reported. NEUROLOGICAL: Denies amaurosis fugax, motor weakness, sensory deficit, verti go/spinning sensation, gait abnormalities, or tremors. ENT: No hearing loss, otalgia, otorrhea, rhinitis, rhinorrhea, hoarseness, or sore throat. CARDIOVASCULAR: Denies any exertional angina, dyspnea on exertion, orthopnea, paroxysmal nocturnal dyspnea, palpitations, life-threatening arrhythmias, claudication. PULMONARY: Denies any shortness of breath, cough, phlegm/sputum, hemoptysis, pleuritic chest pain. SLEEP: Denies morning headaches, daytime somnolence or napping. Denies difficulty falling asleep, staying asleep, waking from sleep. Denies knowledge of snoring. GASTROINTESTINAL: Denies any type of dysphagia to either liquids or solids. Denies nausea, vomiting, pyrosis, early satiety, abdominal pain, diarrhea, constipation, or changes in stool consistency or caliber. Denies coffee-ground emesis, hematemesis, hematochezia, or melanotic stools. GENITOURINARY: Denies frequency, urgency, nocturia, hematuria or incontinence (Storage/Irritative symptoms.) Low urinary stream, straining to void, urinary intermittency or hesitancy, splitting of the voiding stream, terminal dribbling. ENDOCRINOLOGIC: Denies polyuria, polydipsia, polyphagia or heat/cold intolerances. HEMATOLOGIC: Denies thrombophilia/previous clots, or coagulopathy/bleeding disorders. ONCOLOGIC: Denies personal history of malignancy. DERMATOLOGIC: Denies rashes or pruritus. PSYCHIATRIC: Denies any suicidal or homicidal ideation. Denies hallucinations. PHYSICAL EXAM GENERAL APPEARANCE: The patient is awake, alert, and oriented, in no acute cardiopulmonary distress. NEUROLOGICAL: Cranial nerves II-XII grossly intact. Motor is 5/5 in bilateral upper and lower extremities proximal to distal. No sensory deficits. HEENT: Face is symmetric. Pupils are equal and reactive. Extraocular movements are intact. NECK: Supple. No JVD. No thyromegaly. No submental, submandibular, pre- /postauricular, occipital or supraclavicular lymphadenopathy. CHEST: Normal chest expansion. No Telemetry. LUNGS: Absence of any rales, rhonchi or any wheezing. CARDIOVASCULAR: Regular. S1 and S2 normal. No appreciable rubs, murmurs or gallops. ABDOMEN: Soft, nontender, and nondistended. There is no rebound, voluntary guarding, or rigidity. : Deferred. No Woodard. EXTREMITIES: Non-edematous and not cyanotic. No clubbing. Good capillary refill. SKIN: No skin breakdown. Vital Signs (last 8hr) Date Time Temp Pulse Resp B/P (MAP) Pulse Ox O2 Delivery O2 Flow Rate FiO2 10/24/24 11:54 98.1 77 18 142/85 97 Room Air 21 10/24/24 08:11 98.1 69 18 128/71 98 Room Air 21 LABS: Laboratory: Test 10/24/24 10:35 10/24/24 05:40 10/23/24 05:51 10/22/24 20:55 Range/Units Whole Blood Glucose 140 H 70-110 MG/DL White Blood Count 12.1 #H 4.8-10.8 K/uL Red Blood Count 3.50 L 4.00-5.50 MIL/uL Hemoglobin 10.3 L 12.0-16.0 g/dL Hematocrit 29.5 L 36-48 % Mean Corpuscular Volume 84.3 79-99 fL Mean Corpuscular Hemoglobin 29.4 27.0-33.0 pg Mean Corpuscular Hemoglobin Concent 34.9 32.0-36.0 g/dL Red Cell Distribution Width 12.7 11.0-15.5 % Platelet Count 148 130-400 K/uL Mean Platelet Volume 10.6 H 7.5-10.5 fL Immature Granulocyte % (Auto) 0.5 0-1 % Neutrophils (%) (Auto) 65.5 40.0-77.0 % Lymphocytes (%) (Auto) 24.8 21.0-51.0 % Monocytes (%) (Auto) 7.6 3.0-13.0 % Eosinophils (%) (Auto) 1.0 0.0-8.0 % Basophils (%) (Auto) 0.6 0.0-5.0 % Neutrophils # (Auto) 8.0 H 1.8-7.7 K/uL Lymphocytes # (Auto) 3.0 1.0-4.8 K/uL Monocytes # (Auto) 0.9 0.1-1.0 K/uL Eosinophils # (Auto) 0.12 0.00-0.70 K/uL Basophils # (Auto) 0.07 0.00-0.20 K/uL Absolute Immature Granulocyte (auto 0.06 0-1 K/uL Nucleated Red Blood Cells 0.0 0.0-0.19 % Sodium Level 144 136-145 mmol/L Potassium Level 4.3 3.5-5.1 mmol/L Chloride Level 110 101-111 mmol/L Carbon Dioxide Level 28 21-32 mmol/L Blood Urea Nitrogen 8 7-18 mg/dL Creatinine 0.9 0.5-1.0 mg/dL Glomerular Filtration Rate Calc 78 >90 mL/min Random Glucose 108 H 70-105 mg/dL Total Calcium 8.5 8.5-10.1 mg/dL Magnesium Level 2.20 1.80-2.40 mg/dL Hemoglobin A1c 6.4 H 4.0-6.0 % Estimated Average Glucose (eAG) 137 H 70-126 mg/dL Phosphorus Level 3.2 2.5-4.9 mg/dL Group A Streptococcus Rapid positive *A NEGATIVE Test 10/22/24 20:40 10/22/24 18:00 10/22/24 16:38 Range/Units Lactic Acid Level 2.5 0.8-2.5 mmol/L Urine Color LIGHT-YELLOW YELLOW Urine Appearance CLEAR CLEAR Urine pH 6.5 5.0-8.0 Urine Specific [place] 1.022 1.001-1.031 Urine Protein 50 H NEGATIVE mg/dL Urine Glucose (UA) 30 H NEGATIVE mg/dL Urine Ketones NEGATIVE NEGATIVE mg/dL Urine Occult Blood NEGATIVE NEGATIVE Urine Nitrate NEGATIVE NEGATIVE Urine Bilirubin NEGATIVE NEGATIVE mg/dL Urine Urobilinogen 0.2 0.2-1.0 mg/dL Urine Leukocyte Esterase NEGATIVE NEGATIVE Saleem/uL Urine RBC None 0-1 /HPF Urine WBC 0-1 0-1 /HPF Urine Squamous Epithelial Cells RARE 0-2 /HPF Urine Bacteria None None Seen /HPF Influenza Type A Antigen Negative For Type A NEGATIVE Influenza Type B Antigen Negative For Type B NEGATIVE SARS-CoV-2 Antigen (Rapid) PRESUMPTIVE NEGATIVE NEGATIVE White Cell Morphology Comment See comments Whole Blood Ketones Quantitative 0.2 0.0-0.6 mmol/L Procalcitonin < 0.05 L 0.05-0.5 ng/mL Current Medications Medications (Trade) Dose Ordered Sig/Lc Route PRN Reason Start Time Stop Time Status Last Admin Dose Admin Acetaminophen (TYLenol 325MG TAB) 650 mg Q6H PRN PO MILD PAIN (1-3) 10/23/24 17:30 11/22/24 17:29 10/24/24 02:39 650 MG Acetaminophen (TYLenol 650MG SUPPOSITORY) 650 mg Q6H PRN RC MILD to MODERATE PAIN (1-6) 10/22/24 19:30 11/21/24 19:29 10/23/24 01:32 650 MG Bisacodyl (DulcoLAX 5MG TAB) 10 mg BID PRN PO PRN 10/23/24 11:30 11/22/24 11:29 10/24/24 10:50 10 MG Dextrose (D50w) 50 ml AD PRN IV HYPOGLYCEMIA PROTOCOL 10/23/24 21:30 11/22/24 21:29 Enoxaparin Sodium (Lovenox) 40 mg DAILY SQ 10/23/24 09:00 11/22/24 08:59 10/23/24 11:47 40 MG Famotidine (Pepcid 20mg Vial) 20 mg DAILY IV 10/23/24 09:00 11/22/24 08:59 10/24/24 09:15 20 MG Glucagon (Glucagon 1mg Kit) 1 mg AD PRN IM HYPOGLYCEMIA PROTOCOL 10/23/24 21:30 11/22/24 21:29 Hydralazine HCl (APRESOLine 20MG INJ) 10 mg Q6H PRN IV For:SBP above 160;DBP above 90 10/22/24 19:30 11/21/24 19:29 Insulin Human Regular (humuLIN R 100 UNIT/ML 3ML) INSULIN SLIDING SCAL... ACHS SQ 10/22/24 21:00 11/21/24 20:59 10/23/24 17:35 12 UNIT Lactated Ringer's 1,000 ml @ 100 mls/hr Q10H IV 10/22/24 19:30 11/21/24 19:29 10/23/24 23:21 100 MLS/HR Magnesium Sulfate 50 ml @ 0 mls/hr PROTOCOL PRN IV PRN 10/23/24 11:30 11/22/24 11:29 10/23/24 17:29 25 MLS/HR Morphine Sulfate (morPHINE 4MG SYG) 4 mg Q4H PRN IVP SEVERE PAIN (7-10) 10/22/24 19:30 10/29/24 19:29 Ondansetron HCl (zoFRAN 4MG INJ) 4 mg Q6H PRN IV NAUSEA/VOMITING 10/22/24 19:30 11/21/24 19:29 10/23/24 05:59 4 MG Piperacillin Sod/ Tazobactam Sod (Zosyn 3.375gm+NS 50ml) 3.375 gm Q8H IV 10/22/24 19:30 11/01/24 19:29 10/24/24 04:10 3.375 GM Potassium Chloride 100 ml @ 100 mls/hr AD PRN IV POTASSIUM PROTOCOL 10/23/24 11:30 11/22/24 11:29 Potassium Chloride (K-Dur/Klor-Con 20meq) 20 meq AD PRN PO POTASSIUM PROTOCOL 10/23/24 11:30 11/22/24 11:29 10/23/24 23:28 20 MEQ Potassium Chloride (KCl 10% Elixir 20meq/15ml) 20 meq AD PRN PO POTASSIUM PROTOCOL 10/23/24 11:30 11/22/24 11:29 DIAGNOSTICS / RADIOLOGY: [ ] ASSESSMENT: Sepsis, POA Group A Streptococcal infection, POA Diabetes mellitus type 2 Hypertension Hyperlipidemia Nausea, vomiting, POA PLAN: Sepsis, POA Group A Streptococcal infection, POA * Continue Zosyn Q 8 IV * Continue LR at 100 cc/hour and re-evaluate tomorrow * Blood Cultures were collected, results are pending. Follow up when the results are available. Diabetes mellitus type 2, POA * Continue on insulin sliding scale Nausea, vomiting, POA * Continue Zofran 4 mg q.6 p.r.n. * Start on GI soft diet * Continue on Lovenox 40 mg. Discontinue once the patient is comfortable ambulating * Replace electrolytes per protocol We will monitor vitals, clinical symptoms overnight and repeat labs tomorrow. LAURYN CHEN MD Oct 24, 2024 13:06
[2024-10-24] MEDS ORDERED: AMOX500T2 PO (14:54)
--- NOTE | 2024-10-24 17:37 | DS ---
Discharge Summary Hospital Course Summary: The patient is a 48-year-old female with a past medical history of type 2 diabetes mellitus, hypertension, hyperlipidemia presented to ED on 10/22 with the chief complaints of 1 day of fever with chills, nausea, and vomiting. She stated her blood sugar was 260 the day before presentation and was not able to keep any food down. She reported having been around his grandson who was sick and had similar symptoms. On presentation, she was febrile with a temperature of 102.2, pulse rate 137, blood pressure of 129/79. Labs showed a WBC of 18.4, neutrophils percentage 89.4, lymphopenia 5, lactic acid 2.2, Magnesium of 1.6, electrolytes and liver enzymes were within normal limits. The patient tested positive for group a Streptococcus. She met the criteria for sepsis and was admitted to [facility] on medical surgical floor for the management of sepsis. During the course of hospitalization, the patient was closely monitored for the clinical symptoms, vitals, daily labs were ordered. She was treated with a IV fluids, broad-spectrum antibiotic Zosyn, analgesics, and antiemetics. Electrolytes were replaced based on the labs. Today, her WBC count has dropped to 12.1 From 19.4, blood culture has not showed any growth in 24 hours. She has been afebrile for more than 24 hours and is feeling a lot better. She is ambulating well and denies any complaints or concerns. She has not had a bowel movement yet, tolerating diet well. The patient is medically stable for discharge to home with oral antibiotics for 10 days. Procedure(s): [place] [address] [place] [id number] IMAGING REPORT Signed PATIENT: ABDI RODRIGUEZ MR#: [id number] : 1975 SEX: F AGE: 48 LOCATION: EDHIP ORDER 185 STATUS: ADM IN REPORT#: [id number] SERVICE [id number] REASON: SOB/cough ORDERING PHYSICIAN: HARI HOLLAND NP PROCEDURE: CXR1VW - CHEST 1VW Exam Type: CHEST 1VW Clinical Information: SOB/cough Comparison: None Findings: The lungs are clear of infiltrates. The heart is enlarged. Bony and soft tissue structures of the chest wall are unremarkable. IMPRESSION: Cardiomegaly. Clear lungs. DICTATED BY: MARLON DIGGS MD DATE: 10/22/241952 ELECTRONICALLY SIGNED BY: MARLON DIGGS MD DATE: 10/22/241999 RUN DATE: 10/24/24 [facility] [address] RUN TIME: [id number] [address], [place] [address] Department of Laboratories CLIA # [id number] Manager [employer]ipeline: Demetris Love DO Specimen Report PATIENT: ABDI RODRIGUEZ ACCT: [id number] LOC: [facility] U: [id number] AGE/SX: 49/F ROOM: 325 RE10/22/[address]: KATHERIN HYDE MD : 1975 BED: 1 DIS: 10/24/24 STATUS: DIS IN TLOC: SPEC: [id number] SALO: 10/22/24 STATUS: RES REQ: [id number] RECD: 10/22/[address]: HARI HOLLAND NP SOURCE: BLOOD ENTR: 10/22/24-162 [facility] DR: GARETH PINA MD [facility]: ASTON TANNER MD ORDERED: BLOOD CULTURE COMMENTS: What is the Source? BLOOD Procedure Result Kathrin Date-Time BLOOD CULT Preliminary 10/24/24-1642 NO GROWTH AFTER 48 HOURS Assessment/Plan: ASSESSMENT: Sepsis, resolved POA Group A Streptococcal infection, resolving, POA Diabetes mellitus type 2 Hypertension Hyperlipidemia Nausea, vomiting, POA Admission date: 10/22/2024 Discharge date: 10/24/2024 Disposition: Home Condition: Stable Activity: Ad Kamila Home medications: Continued Follow up appointment: Follow up with the primary care provider within 7-10 days of the discharge Imaging report: Please find attached Microbiology report: Please find attached Discharge medications: Start taking amoxicillin 500 mg b.i.d. for 10 days Teaching: We reinforced the importance of compliance with follow up appointment and medication compliance Discharge instructions:Start taking Amoxicillin 500 mg BID for 10 days Rest and hydration Pain relievers (e.g., ibuprofen, acetaminophen) as needed Warm salt water gargles for sore throat The patient was advised to call the nearest emergency department or call 911 s hould their symptoms does not improve or get worse. Discharge Instructions: ATTESTATION BY PHYSICIAN I have seen and examined the patient. I reviewed the documentation, medical decision making, and treatment plan as noted by the resident provider above. I agree with the findings and plan of care. Brittney Graham MD Home Medications: Active Scripts Amoxicillin (Amoxicillin) 500 Mg Tablet, 1 TAB PO BID for 10 Days, #20 TAB 0 Refills Prov:LAURYN CHEN MD 10/24/24 Famotidine (Pepcid) 20 Mg Tablet, 20 MG PO BID for 7 Days, #14 TAB Prov:CAREY AGUAYO 06/19/24 Ondansetron (Ondansetron Odt) 4 Mg Tab.rapdis, 4 MG PO BID for 7 Days, #14 TAB Prov:CAREY AGUAYO 06/19/24 Reported Medications Semaglutide (Ozempic) 2 Mg/0.75 Ml (8 Mg/3 Ml) Pen.injctr, 2 MG SQ QWEEK for 30 Days, #3 ML 0 Refills 10/22/24 Metformin HCl (Metformin HCl) 500 Mg Tablet, 2 TAB PO BID for 30 Days, #60 TAB 0 Refills 10/22/24 New Medications: Amoxicillin (Amoxicillin) 500 Mg Tablet 1 TAB PO BID for 10 Days, #20 TAB 0 Refills Continued Medications: Famotidine (Pepcid) 20 Mg Tablet 20 MG PO BID for 7 Days, #14 TAB Metformin HCl (Metformin HCl) 500 Mg Tablet 2 TAB PO BID for 30 Days, #60 TAB 0 Refills Ondansetron (Ondansetron Odt) 4 Mg Tab.rapdis 4 MG PO BID for 7 Days, #14 TAB Semaglutide (Ozempic) 2 Mg/0.75 Ml (8 Mg/3 Ml) Pen.injctr 2 MG SQ QWEEK for 30 Days, #3 ML 0 Refills Time spent arranging discharge: 31-60 minutes ATTESTATION BY PHYSICIAN I have seen and examined the patient. I reviewed the documentation, medical decision making, and treatment plan as noted by the resident provider above. I agree with the findings and plan of care. Brittney Graham MD, MANALI MD Oct 24, 2024 17:37
== END 2024-10-24 16:10 | disposition home or self-care (01) | DRG 872 ==
LOC: EDH 16:13 → EDHIP 19:08 → 3DH 21:49
PROVIDERS: ADMIT Internal Medicine; ATTEND Internal Medicine
DX: A40.0 Sepsis due to streptococcus, group A (principal); E11.65 Type 2 diabetes mellitus with hyperglycemia; E78.5 Hyperlipidemia, unspecified; Z20.822 Contact with and (suspected) exposure to COVID-19; I10 Essential (primary) hypertension; Z79.899 Other long term (current) drug therapy
CPT/HCPCS: 36415; 71045; 80048; 81001; 82010; 82948; 83036; 83605; 83735; 84100; 84145; 85025; 87040; 87426; 87804; 87880; 99285; G0378; J0696; J1650; J1815; J2405; J2543; J3475; J3490; J7030; J7120